=== PATIENT | female | born 1965 | race Caucasian/White ===

== ENCOUNTER → 2016-06-18 | Outpatient (CLI) | payer MEDICARE ==
--- NOTE | 2016-06-19 14:23 | Diagnostic Imaging Report ---
Indication: COUGH Technique: 2 views of the chest Comparison: none. Findings: Lungs and pleural spaces are clear. Heart size is normal. Bones are unremarkable. Impression: No acute process
== END | disposition home or self-care (01) ==
LOC: RAD 15:57
DX: R05 Cough (principal); M25.519 Pain in unspecified shoulder
CPT/HCPCS: 71020